=== PATIENT | male | born 1990 | race Caucasian/White ===

== ENCOUNTER 2016-04-18 17:42 | Emergency (ER) | payer OTHER ==
[2016-04-18 17:46] VITALS: BP 140/97; PULSE 79; TEMP 98.4; BMI 34.4
--- NOTE | 2016-04-18 18:52 | PDOC ---
History of Present Illness - General Chief Complaint: Pain, Acute Stated Complaint: PAIN Time Seen by Provider: 04/18/16 18:06 - History of Present Illness Initial Comments: 04/18/16 18:49 CHIEF COMPLAINT: vomiting x 1 day HISTORY OF PRESENT ILLNESS: 26-year-old male with history of asthma presents to ER with vomiting and abdominal discomfort since this morning. Patient states that both of his children were sick at home with the same and were given IV fluids and medication for nausea and vomiting. Patient reports that he has been unable to keep any food or liquid down. Patient reports abdominal discomfort is epigastric and is mostly elicited when he throws up. Patient denies any fever, diarrhea, rectal bleeding, urinary symptoms. No recent travel or sick contacts. PAST MEDICAL HISTORY: Denies past medical history FAMILY HISTORY: Denies SOCIAL HISTORY:Denies tobacco, alcohol, illicit drug use. SURGICAL HISTORY: Denies ALLERGIES: No known drug allergies REVIEW OF SYSTEMS General/Constitutional: Denies fever or chills. Denies weakness, weight change. HEENT: Denies change in vision. Denies ear pain or discharge. Denies sore throat. Cardiovascular: Denies chest pain or shortness of breath. Respiratory: Denies cough, wheezing, or hemoptysis. Gastrointestinal: Vomiting since 5 am. Denies diarrhea or constipation. Denies rectal bleeding. Genitourinary: Denies dysuria, frequency, or change in urination. PHYSICAL EXAM General Appearance: Well-appearing, appropriately dressed. No apparent distress , no intoxication. HEENT: EOMI, PERRLA. Respiratory/Chest: Lungs CTAB. Cardiovascular: RRR. S1, S2. Gastrointestinal/Abdominal: Normal bowel sounds. Abdomen soft, non-distended. No tenderness or rebound tenderness. No organomegaly, pulsatile mass, guarding , hernia, hepatomegaly, splenomegaly. Lymphatic: No adenopathy, tenderness. Musculoskeletal/Extremities: Normal inspection. FROM of all extremities, normal capillary refill. Pelvis Stable. No CVA tenderness. No tenderness to extremities, pedal edema, swelling, erythema or deformity. Integumentary: Appropriate color, dry, warm. No cyanosis, erythema, jaundice or rash Neurologic: functional tester II-XII intact. Fully oriented, alert. Appropriate mood/affect. No appreciable EOM palsy, facial droop or sensory deficit. Past History - Past Medical History Allergies/Adverse Reactions: Allergies Allergy/AdvReac Type Severity Reaction Status Date / Time No Known Allergies Allergy Verified 04/18/16 17:43 Home Medications: Ambulatory Orders Famotidine [Pepcid] 20 mg PO BID #10 tablet 04/18/16 Ondansetron [Zofran *Odt*] 8 mg SL BID PRN #14 od.tablet 04/18/16 Anemia: No Asthma: Yes Hypercholesterolemia: Yes Other medical history: denies - Psycho/Social/Smoking Cessation Hx Anxiety: No Suicidal Ideation: No Smoking Status: No Smoking History: Never smoked Number of Cigarettes Smoked Daily: 0 Information on smoking cessation initiated: No Hx Alcohol Use: No Drug/Substance Use Hx: No Substance Use Type: None *Physical Exam - Vital Signs Last Vital Signs Temp Pulse Resp BP Pulse Ox 98.4 F 79 20 140/97 97 04/18/16 17:43 04/18/16 17:43 04/18/16 17:43 04/18/16 17:43 04/18/16 17:43 Medical Decision Making - Medical Decision Making 04/18/16 18:52 26-year-old male with history of asthma presents to ER with vomiting and abdominal discomfort since this morning. -Zofran 8 mg -Protonix 20 mg PO trial after administration of Zofran. -Zofran 8 mg ODT PRN nausea/vomiting sent to pharm Advised patient to take medications as prescribed and follow up with primary care doctor. Advised patient of signs and symptoms for return to ER; patient verbalize understanding agrees to plan. 04/18/16 19:04 *DC/Admit/Observation/Transfer Diagnosis at time of Disposition: Acute gastroenteritis - Discharge Dispostion Disposition: HOME Condition at time of disposition: Stable Admit: No - Prescriptions Prescriptions: Famotidine [Pepcid] 20 mg PO BID #10 tablet Ondansetron [Zofran *Odt*] 8 mg SL BID PRN #14 od.tablet PRN Reason: Nausea And/Or Vomiting - Referrals Referrals: Marcin Pacheco MD [Staff Physician] - - Patient Instructions Printed Discharge Instructions: DI for Viral Gastroenteritis -- Adult Additional Instructions: Please take medications as prescribed. As discussed drink plenty of fluids to prevent dehydration. If you experience severe abdominal pain, pain to the right side of your abdomen, persistent nausea and vomiting unrelieved by medication, inability to keep fluids down, fever, or any new or worsening symptoms, please return to the ER.
[2016-04-18] MEDS ORDERED: ONDANSETRON *ODT* 4 MG TABLET SL ONE (18:57)
[2016-04-18] MEDS ORDERED: PANTOPRAZOLE 20 MG TABLET (FP) PO ONE (19:02)
[2016-04-18] MEDS ORDERED: ONDANSETRON *ODT* 4 MG TABLET ONE ×2 (19:10→19:12)
== END 2016-04-18 20:06 | disposition home or self-care (01) ==
LOC: JERFT 17:42
DX: K52.9 Noninfective gastroenteritis and colitis, unspecified (principal)
CPT/HCPCS: 99281-25